=== PATIENT | female | born 1990 | race Caucasian/White ===

== ENCOUNTER 2016-08-22 06:23 | Emergency (ER) | payer OTHER ==
[~2016-08-22 06:23] MED LIST: AMOXICILLIN500 M3 PO; AUGMENTIN 875-1 EACH PO; BACTRIM DS 8001 TAB PO; BACTROBAN OINT.30 GM TOP; CIPRO 500MG TA500 MG PO; CYCLOBENZAPRINE10 MG; CYCLOBENZAPRINE5 M1; ENDOCET 325 MG-1 TA1 PO; FLEXERIL10 MG PO; FLU VACCINE 0.0.5 ML IM; IBU800 MG PO; IBUPROFEN800 M1 PO; KEFLEX500 MG PO; MOTRIN 600 MG600 MG PO; MOTRIN800 MG PO; NASONEX17 GM NASB; NEXPLANON68 M1; NIFEDICAL XL60 MG PO; OXYCODONE5 M1 PO; PERCOCET 325 MG1 TA2 PO; PRENATAL VITAMI1 TA4 PO; PRENATAL1 TA2 PO; TRAMADOL HCL50 M1 PO; TRAMADOL50 MG PO; TYLENOL325 MG PO; VALIUM2 MG PO; VICODIN 5-3001 EACH PO; YAZ 3 MG-0.02 M1 TAB PO; ZOFRAN4 M1 SL; flexeril PO
[2016-08-22] MEDS ORDERED: IBUPROFEN600 M1 PO (06:39)
--- NOTE | 2016-08-22 06:39 | ED THROAT/DENTAL COMPLAINT ---
History of Present Illness General Chief Complaint: General Adult Stated Complaint: "JAW PAIN INTO HINDU X ONE WEEK" R EAR CLOGGED Source: patient, family Exam Limitations: no limitations Vital Signs & Intake/Output Vital Signs & Intake/Output . Allergies Coded Allergies: lactose (INTOLERANT 08/22/15) Uncoded Allergies: PINE BARK (REACTION TO PINE TREE MAKES STOMACH SICK AND SNEEZING 08/22/15) Reconcile Medications Ibuprofen 600 MG TABLET 1 TAB PO TID PRN PAIN with food Triage Nurses Notes Reviewed? yes Onset: Gradual Duration: week(s):, waxing and waning Timing: recent history Injury Environment: home Severity: mild Modifying Factors: Worsens With: movement. Associated Symptoms: right jaw pain : No Patient currently breastfeeds: No HPI: 26 yo woman in prior good health presents with 2 weeks of right jaw pain radiating up to her right ear, which she states "feels clogged." She notes it is worse at night and is associated with moving her jaw. She notes no dental pain, problems eating, fevers, chills, sinus congestion, cough. She is otherwise well. Past History Travel History Traveled to [place] past 21 day No Medical History Any Pertinent Medical History? see below for history Neurological: NONE EENT: NONE Cardiovascular: NONE Respiratory: asthma Gastrointestinal: NONE Hepatic: NONE Renal: NONE Musculoskeletal: NONE Psychiatric: DEPRESSION Endocrine: NONE Blood Disorders: NONE Cancer(s): NONE [employer]PER[employer]OR/Reproductive: NONE Other Medical Hx: morbid obesity Surgical History Surgical History: appendectomy, Psychosocial History Who do you live with Spouse What is your primary language Greenlandic Tobacco Use: Never used Family History Hx Contributory? No Review of Systems Review of Systems Constitutional: Reports: no symptoms. EENTM: Reports: no symptoms. Respiratory: Reports: no symptoms. Cardiovascular: Reports: no symptoms. GI: Reports: no symptoms. Genitourinary: Reports: no symptoms. Musculoskeletal: Reports: no symptoms. Skin: Reports: no symptoms. Neurological/Psychological: Reports: no symptoms. Hematologic/Endocrine: Reports: no symptoms. Immunologic/Allergic: Reports: no symptoms. All Other Systems: Reviewed and Negative Physical Exam Physical Exam General Appearance: well developed/nourished, no apparent distress Head: atraumatic, normal appearance Eyes: Bilateral: normal appearance. Ears: Bilateral: canal normal, Tympanic normal. Nose: normal inspection, active bleeding Mouth/Throat: normal mouth inspection, tenderness elicited at RIGHT TMJ to palpation and with patient clenching jaw. no dental tenderness/swelling/ erythema Neck: normal inspection, supple Cardiovascular/Respiratory: normal breath sounds, normal peripheral pulses Back: normal inspection Neurologic/Psych: no motor/sensory deficits, awake, alert, oriented x 3 Core Measures ACS in differential dx? No Severe Sepsis Present: No Septic Shock Present: No Progress Differential Diagnosis: odontogenic abscess, stomatitis/gingivitis, tooth fracture, TMJ syndrome Plan of Care: discussed at length... sent rx for ibuprofen. pt referred to dentist for further care. close follow up advised. Departure Departure Disposition: HOME OR SELF CARE Condition: Stable Clinical Impression Primary Impression: TMJ (dislocation of temporomandibular joint) Referrals: VINOD LINDO APRN (PCP/Family) Departure Forms: Customer Survey General Discharge Information Prescriptions: Current Visit Scripts Ibuprofen 1 TAB PO TID PRN PAIN #30 TAB with food
[2016-08-22 06:43] VITALS: BP 134/80
== END 2016-08-22 06:46 ==
LOC: ERH 06:23
DX: S03.00XA Dislocation of jaw, unspecified side, initial encounter (principal); X58.XXXA Exposure to other specified factors, initial encounter; Y92.9 Unspecified place or not applicable; Y93.9 Activity, unspecified